=== PATIENT | female | born 1970 | race Two or more races ===

== ENCOUNTER 2024-02-25 15:04 | Outpatient (CLI) | payer OTHER | END 2024-02-25 15:09 | disposition home or self-care (01) | LOC: SONOGRAMA 15:04 | PROVIDERS: ATTEND Pathology Anatomic Pathology & Clinical Pathology | DX: D34 Benign neoplasm of thyroid gland (principal); E06.3 Autoimmune thyroiditis; E03.9 Hypothyroidism, unspecified ==